=== PATIENT | female | born 1995 | race Hispanic/Latino ===

== ENCOUNTER 2022-01-20 18:42 | Emergency (ER) | payer MEDICAID ==
[~2022-01-20] VITALS: Ht 172.7 cm; Wt 53.5 kg
[2022-01-20 19:23] LABS: BASOPHILS % (AUTO) 0.3 % (0.0-5.0); EOSINOPHILS % (AUTO) 0.6 % (0.0-8.0); HEMATOCRIT 38.1 % (36-48); LYMPHOCYTES % (AUTO) 24.5 % (21.0-51.0); MEAN CORPUSCULAR HEMOGLOBIN 29.8 pg (27.0-33.0); MEAN CORPUSCULAR HGB CONC 33.6 g/dL (32.0-36.0); MEAN CORPUSCULAR VOLUME 88.8 fL (79-99); NEUTROPHILS % (AUTO) 68.3 % (40.0-77.0); PLATELET COUNT (AUTO) 211 K/uL (130-400); RED BLOOD CELL COUNT(AUTO) 4.29 MIL/uL (4.00-5.50); RED CELL DISTRIBUTION WIDTH 12.4 % (11.0-15.5); WHITE BLOOD COUNT (AUTO) 8.7 K/uL (4.8-10.8)
[2022-01-20 19:25] LABS: APPEARANCE,URINE CLOUDY (CLEAR); BILIRUBIN,URINE 0.5 mg/dL (NEGATIVE); COLOR,URINE DARK-YELLOW (YELLOW); GLUCOSE, URINE (UA) NEGATIVE (NEGATIVE); KETONES,URINE NEGATIVE (NEGATIVE); LEUKOCYTE ESTERASE ,URINE 500 Leu/uL (NEGATIVE); NITRATE,URINE 2+ (NEGATIVE); OCCULT BLOOD,URINE SMALL (NEGATIVE); PH,URINE 5.5 (5.0-8.0); PROTEIN,URINE 20 mg/dL (NEGATIVE)
[2022-01-20 19:32] LABS: BACTERIA,URINE FEW /HPF (None Seen); CREATININE 0.8 mg/dL (0.5-1.5); MUCUS,URINE RARE LPF (None Seen); POTASSIUM 3.5 mmol/L (3.5-5.1); SQUAMOUS EPITHELIAL CELL,UR FEW /HPF (0-2); WBC,URINE 51-100 /HPF (0-1); YEAST,URINE BUDDING RARE /HPF (None Seen)
[2022-01-20 19:35] LABS: HCG,QUALITATIVE URINE NEGATIVE (NEGATIVE)
[2022-01-20 19:37] LABS: ALBUMIN 4.3 g/dL (3.5-5.0)
[2022-01-20] MEDS ORDERED: ONDANSETRON 4MG INJ IVP ONE (20:00)
[2022-01-20] MEDS ORDERED: KETOROLAC 15MG/ML VIAL (15MG/ML) IV ONE (20:00)
[2022-01-20] MEDS ORDERED: 0.9%NACL 1000ML 1,000 ML IV ONE (20:00)
[2022-01-20] MEDS ORDERED: CEFTRIAXONE 1G VIAL IVP ONE (20:00)
[2022-01-20 21:30] VITALS: BP 106/64
[2022-01-20] MEDS ORDERED: AZITHROMYCIN 250 MG TABLET PO ONE (21:30)
[2022-01-20] MEDS ORDERED: NAPR500T6 PO (21:58)
[2022-01-20] MEDS ORDERED: DOXY-469 PO (21:58)
[2022-01-20] MEDS ORDERED: METR-172 PO (21:58)
== END 2022-01-20 22:31 | disposition home or self-care (01) ==
LOC: EDH 18:42
DX: N73.9 Female pelvic inflammatory disease, unspecified (principal); N39.0 Urinary tract infection, site not specified; Z88.0 Allergy status to penicillin; Z79.1 Long term (current) use of non-steroidal anti-inflammatories (NSAID)
CPT/HCPCS: 99284; 74176; 96374; 76856; 96375; 96361; 80053; 85025; 87210; 87077; 87088; 87186; 87797; 87486; 81001; 81025; 36415; J0696; J2405; J1885

== ENCOUNTER 2023-08-19 09:23 | Emergency (ER) | payer MEDICAID, OTHER ==
[~2023-08-19] VITALS: Ht 172.7 cm; Wt 54.4 kg
[~2023-08-19 09:23] MED LIST: DOXY100C61 PO; METR-172 PO; NAPR500T6 PO
[2023-08-19 10:34] LABS: RAPID GROUP A STREP negative (NEGATIVE)
[2023-08-19] MEDS: SOLU-MEDROL 125MG VIAL IM ONE (10:47)
[2023-08-19 10:53] LABS: INFLUENZA TYPE A Negative For Type A (NEGATIVE); INFLUENZA TYPE B Negative For Type B (NEGATIVE)
[2023-08-19 10:54] LABS: COVID19 (SARS ANTIGEN RAPID) POSITIVE FOR SARS AG (NEGATIVE)
[2023-08-19] MEDS ORDERED: ALBUHFA IH (10:59)
[2023-08-19] MEDS ORDERED: METH4TAB3 PO (10:59)
[2023-08-19] MEDS ORDERED: AZIT250T9 PO (10:59)
[2023-08-19] MEDS ORDERED: BENZ-39 PO (10:59)
[2023-08-19 11:01] VITALS: BP 118/76; PULSE 90; RESP 14; O2SAT 100
== END 2023-08-19 11:08 | disposition home or self-care (01) ==
LOC: EDH 09:23
DX: U07.1 COVID-19 (principal); Z88.0 Allergy status to penicillin; Z79.899 Other long term (current) drug therapy; Z98.51 Tubal ligation status
CPT/HCPCS: 99283; 87426; 87880; 87804 ×2; 96372; J2919

== ENCOUNTER 2024-04-09 15:30 | Emergency (ER) | payer SELFPAY ==
[~2024-04-09] VITALS: Ht 172.7 cm; Wt 56.2 kg
[~2024-04-09 15:30] MED LIST changes: +ALBUHFA IH; +AZIT250T9 PO; +BENZ-39 PO; +DOXY-466 PO; -DOXY100C61 PO; +METH4TAB3 PO; +NAPR-1506 PO; -NAPR500T6 PO
[2024-04-09 16:02] LABS: HCG,QUALITATIVE URINE NEGATIVE (NEGATIVE)
[2024-04-09 16:04] LABS: APPEARANCE,URINE CLEAR (CLEAR); BACTERIA,URINE RARE /HPF (None Seen); BILIRUBIN,URINE NEGATIVE (NEGATIVE); COLOR,URINE YELLOW (YELLOW); GLUCOSE, URINE (UA) NEGATIVE (NEGATIVE); KETONES,URINE NEGATIVE (NEGATIVE); LEUKOCYTE ESTERASE ,URINE 75 Leu/uL (NEGATIVE); MUCUS,URINE RARE LPF (None Seen); NITRATE,URINE NEGATIVE (NEGATIVE); OCCULT BLOOD,URINE NEGATIVE (NEGATIVE); PH,URINE 6.5 (5.0-8.0); PROTEIN,URINE 10 mg/dL (NEGATIVE); SQUAMOUS EPITHELIAL CELL,UR MANY /HPF (0-2); UROBILINOGEN,URINE 0.2 mg/dL (0.2-1.0)
--- NOTE | 2024-04-09 16:15 | ERN ---
General Chief Complaint: Abdominal Pain Stated Complaint: LOWER ABDOMINAL PAIN Time Seen by MD: 15:31 Source: patient History of Present Illness Initial Comments PATIENT IS A 28-YEAR-OLD FEMALE COMING IN TO BE EVALUATED FOR LOWER ABDOMINAL DISCOMFORT. PATIENT STATES HE WAS SHE WAS HAVING INTERCOURSE WITH HER BOYFRIEND SINCE STARTED HAVING MILD VAGINAL BLEED YESTERDAY. SHE WAS STATES THAT SHORTLY SUBSIDED AND SHE WAS HAVING DIFFICULTY DEFECATING EVENTUALLY SHE WAS ABLE TO DEFECATE BUT IS HERE FOR FURTHER EVALUATION THERE HAS A LOWER ABDOMINAL DISCOMFORT THE STILL PRESENT. Allergies: Coded Allergies: Penicillins (Unverified Allergy, Unknown, 01/20/22) Home Meds Active Scripts Methylprednisolone (Medrol) 4 Mg Tab.ds.pk, 4 MG PO AD, #1 UNIT Prov:NORMAN JOSEPH NP 08/19/23 Benzonatate (Tessalon Perles) 100 Mg Cap, 100 MG PO TID for cough, #30 CAP 0 Refills Prov:NORMAN JOSEPH NP 08/19/23 Azithromycin (Azithromycin) 250 Mg Tablet, 250 MG PO ACLUNCH, #6 TAB TWO TABLETS DAY ONE, THEN ONE TABLET DAYS TWO THROUGH FIVE. Prov:NORMAN JOSEPH NP 08/19/23 Albuterol Sulfate (Ventolin Hfa/Proventil Hfa/Proair Hfa) 90 Mcg Puff, 2 PUFF IH Q4H PRN for SHORTNESS OF BREATH/WHEEZING for 30 Days, #1 INH 0 Refills Prov:NORMAN JOSEPH NP 08/19/23 Naproxen (Naproxen) 500 Mg Tablet.dr, 500 MG PO BIDPC, #15 TAB Prov:МАРИНА COUCH 01/20/22 Metronidazole (Metronidazole) 500 Mg Tablet, 500 MG PO BID, #28 TAB Prov:МАРИНА COUCH 01/20/22 Doxycycline Monohydrate (Doxycycline Monohydrate) 100 Mg Capsule, 1 CAP PO BID for 14 Days, #28 CAP 0 Refills Prov:МАРИНА COUCHP 01/20/22 Past Medical History Past Medical History: No Pertinent History Past Surgical History: BTL Surgical History Other: BTL Female( History) History: Not Applicable ROS Dictation CONSTITUTIONAL: NO CHILLS, NO FEVER, NO WEAKNESS, NO DIAPHORESIS, NO MALAISE. HEAD/FACE: NO SIGNS OF TRAUMA. EENT: NO EYE PAIN, NO BLURRED VISION, NO TEARING, NO DOUBLE VISION, NO EAR PAIN, NO EAR DISCHARGE, NO NOSE PAIN, NO NASAL CONGESTION, NO THROAT PAIN, NO THROAT SWELLING, NO MOUTH PAIN. RESPIRATORY: NO COUGH, NO ORTHOPNEA, NO SOB, NO STRIDOR, NO WHEEZING. CARDIOVASCULAR: NO CHEST PAIN, NO EDEMA, NO PALPITATIONS, NO SYNCOPE. GASTROINTESTINAL/ABDOMINAL: NO ABDOMINAL PAIN, NO CONSTIPATION, NO DIARRHEA, NO NAUSEA, NO VOMITING. GENITOURINARY: NO ABNORMAL DISCHARGE, NO DYSURIA, NO FREQUENT URINATION, NO HEMATURIA. NO COMPLAINTS OF PAIN IN THE GENITALS. MUSCULOSKELETAL: NO BACK PAIN, NO GOUT, NO JOINT PAIN, NO JOINT SWELLING, NO MUSCLE PAIN, NO MUSCLE STIFFNESS, NO NECK PAIN. INTEGUMENTARY: NO CHANGE IN COLOR, NO CHANGE IN HAIR/NAILS, NO DRYNESS, NO LESION, NO LUMPS, NO RASH. NEUROLOGICAL/PSYCH: NO ANXIETY, NOT DEPRESSED, NO EMOTIONAL PROBLEM, NO HEADACHE, NO NUMBNESS, NO PRE-EXISTING DEFICIT, NO HISTORY OF SEIZURES, NO TREMORS, NO WEAKNESS. HEMATOLOGIC/LYMPHATIC: NOT ANEMIC, NO HISTORY OF BLOOD CLOTS, NO APPARENT BLEEDING, NO BRUISING, GLANDS NOT SWOLLEN. ALL SYSTEMS NEGATIVE, EXCEPT NOTED. Physical Exam Physical Exam Dictation VITAL SIGNS: REVIEWED. GENERAL APPEARANCE: ALERT, ORIENTED X3, NO ACUTE DISTRESS, OBESE. HEAD AND FACE: NON-TRAUMATIC. EYES: PERRL, PINK CONJUNCTIVAS, EYELID NO TRAUMA, ANTERIOR CHAMBER CLEAR. EARS: PINNAS INTACT AND NO SIGNS OF TRAUMA OR ERYTHEMA. EAR CANALS CLEAR AND NO DISCHARGE. TMS NO ERYTHEMA. NOSE: NO DISCHARGE, NO BLEEDING. OROPHARYNX: MOUTH NORMAL, TEETH NO CARIES, TONGUE PINK. PHARYNX CLEAR, NO ERYTHEMA. TONSILS NO EXUDATES, NO ABSCESSES NOTED. MUCOUS MEMBRANE MOIST. NECK: SUPPLE, NON-TENDER, NO THYROMEGALY, NO MASSES, NO JVD, NO BRUITS. BREAST: DEFERRED. CHEST: NO TENDERNESS, NO CREPITUS, NO PARADOXICAL MOVEMENT, NO RETRACTIONS. LUNGS: CLEAR, WELL-VENTILATED, SYMMETRIC, NO RALES, NO WHEEZING, NO RHONCHI, NO STRIDOR, GOOD BREATH SOUNDS BILATERALLY. HEART: REGULAR RATE, REGULAR RHYTHM, NO MURMUR, NO GALLOPS. VASCULAR: NO PERIPHERAL EDEMA. ABDOMEN: SOFT, POSITIVE BOWEL SOUNDS, NONDISTENDED, NO GUARDING, NONTENDER, NO REBOUND, NO MASSES NO HEPATOMEGALY, NO SPLENOMEGALY, NO ESCOBAR'S SIGN, NO HERNIAS. RECTAL: DEFERRED. GENITAL: DEFERRED. NEUROLOGICAL: NORMAL SPEECH, GROSS MOTOR FUNCTION INTACT, GROSS SENSORY FUNCTION INTACT. MUSCULOSKELETAL: NECK NONTENDER, FULL RANGE OF MOTION, BACK NONTENDER, FULL RANGE OF MOTION. EXTREMITIES: NONTENDER, FULL RANGE OF MOTION. SKIN: COLOR PINK, DRY, NO TURGOR, NO RASH, NO LACERATIONS, NO ABRASIONS, NO CONTUSIONS. LYMPHATICS: DEFERRED. Results Laboratory and Microbiology Lab and Micro Result Laboratory Tests Test 04/09/24 15:53 Urine Color YELLOW (YELLOW) Urine Appearance CLEAR (CLEAR) Urine pH 6.5 (5.0-8.0) Urine Specific [place] 1.020 (1.001-1.031) Urine Protein 10 mg/dL (NEGATIVE) H Urine Glucose (UA) NEGATIVE mg/dL (NEGATIVE) Urine Ketones NEGATIVE mg/dL (NEGATIVE) Urine Occult Blood NEGATIVE (NEGATIVE) Urine Nitrate NEGATIVE (NEGATIVE) Urine Bilirubin NEGATIVE mg/dL (NEGATIVE) Urine Urobilinogen 0.2 mg/dL (0.2-1.0) Urine Leukocyte Esterase 75 Magalie/uL (NEGATIVE) H Urine RBC None /HPF (0-1) Urine WBC 2-5 /HPF (0-1) H Urine Squamous Epithelial Cells MANY /HPF (0-2) Urine Bacteria RARE /HPF (None Seen) Urine HCG, Qualitative NEGATIVE (NEGATIVE) EKG/XRAY/US/CT/MRI X-RAY Comment [address] [address] IMAGING REPORT Signed PATIENT: ALANA MARQUEZ MR#: [id number] : 1995 SEX: F AGE: 28 LOCATION: [facility] ORDER 36 STATUS: REG REPORT#: [id number] SERVICE 35 REASON: constipation ORDERING PHYSICIAN: KRISTIE NEWMAN MD PROCEDURE: ABD 1VW - ABD 1VW ABDOMEN SINGLE VIEW INDICATION: Pain COMPARISON: None FINDINGS: Supine view only No abnormal bowel dilation noted. No abnormal calcifications identified. No gross free air detected. Moderate proximal colonic stool burden otherwise, mild mid to distal colonic stool burden. IMPRESSION: No evidence for bowel obstruction. DICTATED BY: ARTUR ANAYA MD DATE: 04/09/241653 ELECTRONICALLY SIGNED BY: ARTUR ANAYA MD DATE: 04/09/241656 Ultrasound Comment [place] [id number] [place] [address] IMAGING REPORT Signed PATIENT: ALANA MARQUEZ MR#: [id number] : 1995 SEX: F AGE: 28 LOCATION: [facility] ORDER 163 STATUS: REG ER REPORT#: [id number] SERVICE 163 REASON: LOWER ABD DISCOMFORT ORDERING PHYSICIAN: KRISTIE NEWMAN MD PROCEDURE: PELVCOMP - US PELVIC NON-OB COMP ULTRASOUND OF THE PELVIS ULTRASOUND ABD VASCULAR LIMITED INDICATION: Pelvic pain COMPARISONS: None TECHNIQUE: Transabdominal real-time sonographic images were acquired earlier, and subsequently made available for review. FINDINGS: The uterus measures 10.2 x 3.9 x 4.7 cm. The uterus is normal in echotexture and contour. The endometrial thickness measures 9.0 mm. The right ovary measures 3.5 x 2.9 x 3.5 cm. The right ovary is normal in size, shape and echogenicity. No right adnexal masses demonstrated. Color Doppler flow is normal throughout the right ovary. Spectral Doppler analysis demonstrates a normal waveform pattern. The left ovary measures 3.6 x 2.6 x 3.3 cm. The left ovary is normal in size, shape and echogenicity. No left adnexal masses demonstrated. Color Doppler flow is normal throughout the left ovary. Spectral Doppler analysis demonstrates a normal waveform pattern. Trace free fluid demonstrated within the right lower abdomen. IMPRESSION: Trace free fluid within the right lower abdomen without any acute pelvic abnormality noted. DICTATED BY: ARTUR ANAYA MD DATE: 04/09/241652 ELECTRONICALLY SIGNED BY: ARTUR ANAYA MD DATE: 04/09/241655 MDM MDM: DIFFERENTIAL DIAGNOSIS: CONSTIPATION, VAGINITIS, TRAUMATIC SEXUAL INTERCOURSE PATIENT IS A 28-YEAR-OLD FEMALE COMING IN TO BE EVALUATED FOR LOWER ABDOMINAL DISCOMFORT. PATIENT STATES THAT THE LAST NIGHT SHE WAS HAVING INTERCOURSE WITH HER BOYFRIEND AND STATES THAT HER VAGINAL AREA STARTED TO HURT AND SHE HAD SAW A LITTLE BIT OF BLOOD WHICH HAS SUBSIDED SINCE THEN. SHE ALSO STATES THAT SHE WENT TO THE [place] AND WAS INITIALLY HAVING PROBLEMS DEFECATING BUT WAS ABLE TO GO SHORTLY AFTER THAT INITIAL BOUT. SHE WAS HERE FOR FURTHER EVALUATION. ON PHYSICAL EXAM THERE WAS LOWER ABDOMINAL DISCOMFORT PATIENT STATES THAT SHE WAS GOING TO FOLLOW UP WITH HER OB TO HAVE A PELVIC EXAM PERFORMED AND STATES SHE WISHES TO HOLD OFF ON HAVING IT HERE. LABORATORY WORKUP POSITIVE FOR URINARY TRACT INFECTION. ED Course Orders Procedure Category Date Status Time Urinalysis LAB 04/09/24 Complete W/Microscopic 15:36 ,Urine Test LAB 04/09/24 Complete 15:36 Abd 1vw RAD 04/09/24 Resulted 15:36 Culture Urine LARISA 04/09/24 In Process 16:05 Us Pelvic Non-Ob Comp US 04/09/24 Resulted 16:32 Vital Signs Date Time Temp Pulse Resp B/P (MAP) Pulse Ox O2 Delivery O2 Flow Rate FiO2 04/09/24 15:58 98.2 80 16 119/44 100 Room Air* 0 21 04/09/24 15:42 98.6 90 16 108/63 100 Room Air 0 DX & DISP Disposition: Discharge Departure Impression: Primary Impression: UTI (urinary tract infection) Condition: Stable Scripts Sulfamethoxazole/Trimethoprim (Bactrim Ds Tablet) 800 Mg-160 Mg Tablet 1 TAB PO BID for 7 Days, #14 TAB 0 Refills Prov: KRISTIE NEWMAN MD 04/09/24 Additional Instructions: FOLLOW-UP WITH PRIMARY CARE PROVIDER IN 1 TO 2 DAYS. TAKE MEDICATIONS DIRECTED HERE IN THE EMERGENCY ROOM. OKAY TO CONTINUE HOME MEDICATIONS UNLESS OTHERWISE DISCUSSED DURING YOUR VISIT IN THE EMERGENCY ROOM TODAY. RETURN TO YOUR NEAREST EMERGENCY ROOM IF SYMPTOMS WORSEN OR IF THERE IS NO IMPROVEMENT. CALL 911 IF YOU NEED IMMEDIATE ASSISTANCE. TAKE TYLENOL [id number] NEEDED AND IF NO CONTRAINDICATIONS ARE PRESENT. INCREASE ORAL HYDRATION. A WOUND CULTURE OR URINE CULTURE WAS ORDERED HERE IN THE EMERGENCY ROOM DEPARTMENT PLEASE FOLLOW-UP WITH PRIMARY CARE PROVIDER AND ADVISE THEM TO GET REPEAT PORTS FROM OUR FACILITY. IF YOU HAD ANY TAI WRAP/SPLINTS THAT WERE APPLIED HERE, PLEASE DO NOT REMOVE THEM UNTIL YOU SEE YOUR PRIMARY CARE OR SPECIALTY. REFERRALS: Referrals: NONE (PCP) BENNETT MERLOS MD Time of Disposition: 17:07 KRISTIE NEWMAN MD Apr 09, 2024 16:15
--- NOTE | 2024-04-09 16:56 | HMCIMG ---
ULTRASOUND OF THE PELVIS ULTRASOUND ABD VASCULAR LIMITED INDICATION: Pelvic pain COMPARISONS: None TECHNIQUE: Transabdominal real-time sonographic images were acquired earlier, and subsequently made available for review. FINDINGS: The uterus measures 10.2 x 3.9 x 4.7 cm. The uterus is normal in echotexture and contour. The endometrial thickness measures 9.0 mm. The right ovary measures 3.5 x 2.9 x 3.5 cm. The right ovary is normal in size, shape and echogenicity. No right adnexal masses demonstrated. Color Doppler flow is normal throughout the right ovary. Spectral Doppler analysis demonstrates a normal waveform pattern. The left ovary measures 3.6 x 2.6 x 3.3 cm. The left ovary is normal in size, shape and echogenicity. No left adnexal masses demonstrated. Color Doppler flow is normal throughout the left ovary. Spectral Doppler analysis demonstrates a normal waveform pattern. Trace free fluid demonstrated within the right lower abdomen. IMPRESSION: Trace free fluid within the right lower abdomen without any acute pelvic abnormality noted.
--- NOTE | 2024-04-09 16:57 | HMCIMG ---
ABDOMEN SINGLE VIEW INDICATION: Pain COMPARISON: None FINDINGS: Supine view only No abnormal bowel dilation noted. No abnormal calcifications identified. No gross free air detected. Moderate proximal colonic stool burden otherwise, mild mid to distal colonic stool burden. IMPRESSION: No evidence for bowel obstruction.
[2024-04-09] MEDS ORDERED: SULF1TAB42 PO (17:08)
[2024-04-09 17:09] VITALS: BP 120/50; PULSE 80; RESP 16; TEMP 98; O2SAT 100
== END 2024-04-09 17:21 | disposition home or self-care (01) ==
LOC: EDH 15:30
DX: N39.0 Urinary tract infection, site not specified (principal); Z88.0 Allergy status to penicillin; Z98.51 Tubal ligation status; Z79.899 Other long term (current) drug therapy
CPT/HCPCS: 74018; 76856; 81001; 81025; 87086; 99284